=== PATIENT | male | born 1985 | race Caucasian/White ===

== ENCOUNTER 2017-12-16 21:30 | Emergency (ER) | payer OTHER ==
[~2017-12-16] VITALS: Ht 185.4 cm; Wt 110.5 kg
[~2017-12-16 21:30] MED LIST: MIRALAX17 GM PO; SYNTHROID25 MCG PO; ZOFRAN ODT4 MG PO
[2017-12-16] MEDS ORDERED: PERCOCET 5/31 TABLET PO (22:55)
[2017-12-16] MEDS ORDERED: CLEOCIN300 MG PO (22:56)
[2017-12-16 23:28] VITALS: BP 178/82
== END 2017-12-16 23:28 | disposition home or self-care (01) ==
LOC: EME 21:30
PROC: 3E0T3BZ Introduction of Anesthetic Agent into Peripheral Nerves and Plexi, Percutaneous Approach (ICD-10-PCS; principal; 2017-12-16)
DX: K08.89 Other specified disorders of teeth and supporting structures (principal)
CPT/HCPCS: 99281; 99283